=== PATIENT | female | born 1980 | race Caucasian/White ===

== ENCOUNTER → 2016-09-21 | Outpatient (CLI) | payer OTHER ==
--- NOTE | ~2016-09-21 | US6 ---
[facility] A Service of [facility] RADIOLOGY TEXT RESULTS PATIENT: ALVINA HATFIELD LOCATION: [facility] : 78 UNIT #: [id number] AGE: [address]: SHANITA RAJPUT APRN SEX: F ORDER DR: [id number] [facility] [address] [place], [place] [address] [id number] O MR#: [id number] Acc #: [id number] NAME: ALVINA HATFIELD : 1980 SEX: F STUDY DATE/TIME: 09/21/2016 11:34 UNIT: [facility] ROOM: STUDY DESCRIPTION: US Abdominal Limited Attending Physician: Shanita Rajput A.P.R.N. Referring Physician: Shanita Rajput A.P.R.N. Ordering Physician: Shanita Rajput A.P.R.N. Primary Care Physician: [facility] MEDICAL IMAGING REPORT This report is preliminary unless electronic signature is present EXAM Right upper quadrant ultrasound, 09/21/2016. INDICATION Recently diagnosed hepatitis C in a 36-year-old male. No treatment thus far. Right upper quadrant pain for a year. History of cholecystectomy. TECHNIQUE Sonographic imaging of the right upper quadrant was performed. COMPARISON STUDIES No comparisons. FINDINGS Visualized aspects of the pancreas are unremarkable. Distal body and tail obscured by bowel gas and not seen or evaluated. Survey images of the liver demonstrate no focal mass, ascites, or intrahepatic ductal dilatation. The gallbladder is surgically absent. Extrahepatic common bile duct measures between 5-8 mm, likely physiologic given the prior cholecystectomy. Laboratory data would be complimentary. Liver measures 15.1 cm long axis. Right kidney nonobstructed measuring 10.4 cm long axis. IMPRESSION Surgical absence of the gallbladder, otherwise negative right upper quadrant ultrasound. Dictated by... Sheldon Lucas M.D. THIS IS AN ELECTRONICALLY VERIFIED REPORT Sheldon Lucas M.D. at 09/22/2016 7:34 AM [facility] A Service of [facility] RADIOLOGY TEXT RESULTS PATIENT: ALVINA HATFIELD LOCATION: [facility] : 78 UNIT #: [id number] AGE: [address]: SHANITA RAJPUT APRN SEX: F ORDER DR: Thelma TD: 09/21/2016 16:41 JOB #: [id number] MEDICAL IMAGING REPORT COPY
[2016-09-21 11:34] LABS: HEMATOCRIT 36.1 % (35.0-45.0); HEMOGLOBIN 11.7 gm/dL (12.0-16.0); MEAN CELL VOLUME 85.5 FL (83-96); MEAN CORPUSCULAR HEMOGLOBIN 27.7 PG (28-34); MEAN CORPUSCULAR HGB CONC 32.4 g/dL (30-36); MEAN PLATELET VOLUME 8.1 FL (6.5-11.5); RED BLOOD COUNT 4.22 X10e (3.90-5.30); RED CELL DISTRIBUTION WIDTH 14.4 % (11.0-15.5); WHITE BLOOD COUNT 6.4 X10e3 (4.0-10.5)
[2016-09-21 12:00] LABS: AMPHETAMINE NEG (NEG); BARBITURATES NEG (NEG); BENZODIAZEPINES NEG (NEG); COCAINE NEG (NEG); MARIJUANA NEG (NEG); OPIATES NEG (NEG); TRICYCLIC ANTIDEPRESSANTS NEG (NEG); U METHADONE NEG (NEG)
[2016-09-21 12:04] LABS: ALBUMIN SERUM 4.1 g/dL (3.5-5.0); ALKALINE PHOSPHATASE 44 U/L (32-92); ALT (SGPT) 84 U/L (10-40); AST (SGOT) 70 U/L (10-42); BILIRUBIN,TOTAL 0.5 mg/dL (0.2-2.0); BLOOD UREA NITROGEN 5 mg/dL (9-23); BUN/CREATININE RATIO 7.14; CALCIUM SERUM 8.7 mg/dL (8.4-10.2); CARBON DIOXIDE 29 mmol/L (22-31); CHLORIDE 109 mmol/L (100-111); CREATININE SERUM 0.7 mg/dL (0.6-1.4); GLOM FILT RATE Estimated ABOVE60 mL/min (>60); GLUCOSE FASTING 97 mg/dL (70-110); POTASSIUM 3.8 mmol/L (3.5-5.1); PROTEIN TOTAL SERUM 8.1 g/dL (6.0-8.3); SODIUM 139 mmol/L (135-145)
== END | disposition home or self-care (01) ==
LOC: CGUS 10:29
PROVIDERS: Nurse Practitioner Family
DX: B19.20 Unspecified viral hepatitis C without hepatic coma (principal); Z90.49 Acquired absence of other specified parts of digestive tract
CPT/HCPCS: 36415; 76705; 80053; 80307; 82172; 82247; 82977; 83010; 83883; 84460; 85027; 87522; 87902